=== PATIENT | female | born 2000 | race Caucasian/White ===

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

== ENCOUNTER 2021-04-19 10:40 | Emergency (ER) | payer MEDICAID ==
[~2021-04-19] VITALS: Ht 162.6 cm; Wt 51.8 kg
[2021-04-19 11:32] VITALS: BP 113/70
[2021-04-19] MEDS ORDERED: LIDO20SO16 PO (12:10)
== END 2021-04-19 12:17 | disposition home or self-care (01) ==
LOC: ER 10:41
DX: J02.9 Acute pharyngitis, unspecified (principal); Z88.5 Allergy status to narcotic agent; Z79.899 Other long term (current) drug therapy
CPT/HCPCS: 99283

== ENCOUNTER 2021-04-24 05:38 | Emergency (ER) | payer MEDICAID ==
[~2021-04-24] VITALS: Ht 162.6 cm; Wt 51.8 kg
[~2021-04-24 05:38] MED LIST changes: +LIDO20SO16 PO
[2021-04-24] MEDS ORDERED: dexamethasone 4mg tablet PO ONE (06:00)
[2021-04-24 06:12] VITALS: BP 110/65
== END 2021-04-24 06:33 | disposition home or self-care (01) ==
LOC: ER 05:40
DX: J02.9 Acute pharyngitis, unspecified (principal); R09.89 Other specified symptoms and signs involving the circulatory and respiratory systems; Z88.5 Allergy status to narcotic agent; Z88.8 Allergy status to other drugs, medicaments and biological substances; Z79.899 Other long term (current) drug therapy
CPT/HCPCS: 99283

== ENCOUNTER 2022-04-28 18:15 | Emergency (ER) | payer MEDICAID ==
[~2022-04-28] VITALS: Ht 165.1 cm; Wt 59.1 kg
[2022-04-28 18:20] VITALS: BP 124/77
[2022-04-28] MEDS ORDERED: ondansetron 4mg rapidly disintigrating tab PO ONE (20:00)
[2022-04-28 20:15] LABS: CLARITY,URINE CLEAR (Clear); COLOR,URINE YELLOW (Yellow); GLUCOSE, URINE NEGATIVE (Neg); KETONES,URINE 15 mg/dl (Neg); LEUKOCYTE ESTERASE ,URINE NEGATIVE (Neg); NITRITES, URINE NEGATIVE (Neg); OCCULT BLOOD,URINE NEGATIVE (Neg); PROTEIN,URINE NEGATIVE (Neg); UROBILINOGEN,URINE 0.2 E.U/dL (0.2-1.0)
[2022-04-28 20:16] LABS: URINE HCG NEGATIVE (NEG)
[2022-04-28 20:21] LABS: UA COLLECTION TYPE CLN CATCH MIDSTREAM
[2022-04-28] MEDS ORDERED: ONDA4TAB12 PO (20:36)
== END 2022-04-28 21:18 | disposition home or self-care (01) ==
LOC: ER 18:16
DX: R11.2 Nausea with vomiting, unspecified (principal); N89.8 Other specified noninflammatory disorders of vagina; Z88.5 Allergy status to narcotic agent; Z88.8 Allergy status to other drugs, medicaments and biological substances; Z79.899 Other long term (current) drug therapy
CPT/HCPCS: 81003; 81025; 99283

== ENCOUNTER 2022-06-29 05:33 | Emergency (ER) | payer MEDICAID ==
[~2022-06-29] VITALS: Ht 165.1 cm; Wt 59.8 kg
[~2022-06-29 05:33] MED LIST changes: +ONDA4TAB12 PO
[2022-06-29 05:46] VITALS: BP 124/82
[2022-06-29] MEDS ORDERED: ibuprofen tablet 400 MG TABLET PO ONE (06:35)
[2022-06-29] MEDS ORDERED: ibuprofen 200mg tablet PO ONE (06:40)
== END 2022-06-29 08:03 | disposition home or self-care (01) ==
LOC: ER 05:33
DX: S40.012A Contusion of left shoulder, initial encounter (principal); S56.412A Strain of extensor muscle, fascia and tendon of left index finger at forearm level, initial encounter; S56.114A Strain of flexor muscle, fascia and tendon of left middle finger at forearm level, initial encounter; Z88.8 Allergy status to other drugs, medicaments and biological substances; Z88.5 Allergy status to narcotic agent; W19.XXXA Unspecified fall, initial encounter; Y93.89 Activity, other specified; Y92.89 Other specified places as the place of occurrence of the external cause; Y99.8 Other external cause status
CPT/HCPCS: 73030; 73130; 99284

== ENCOUNTER 2022-07-01 16:22 | Emergency (ER) | payer MEDICAID ==
[~2022-07-01] VITALS: Ht 165.1 cm; Wt 60.4 kg
[2022-07-01 16:24] VITALS: BP 123/77
[2022-07-01] MEDS ORDERED: ondansetron 4mg rapidly disintigrating tab PO ONE (17:05)
[2022-07-01] MEDS ORDERED: LORazepam 1 MG tablet PO ONE (17:05)
== END 2022-07-01 17:39 | disposition home or self-care (01) ==
LOC: ER 16:22
DX: R00.2 Palpitations (principal); R11.0 Nausea; Z88.8 Allergy status to other drugs, medicaments and biological substances; Z88.5 Allergy status to narcotic agent; Z79.899 Other long term (current) drug therapy
CPT/HCPCS: 99283

== ENCOUNTER 2023-04-24 19:48 | Emergency (ER) | payer MEDICAID ==
[~2023-04-24] VITALS: Ht 162.6 cm; Wt 59.0 kg
[2023-04-24 19:58] VITALS: BP 113/73; PULSE 70; RESP 16; TEMP 98.2; O2SAT 99
[2023-04-24] MEDS: ibuprofen tablet 400 MG TABLET PO ONE (21:04)
[2023-04-24] MEDS ORDERED: IBUP-1984 PO (21:37)
== END 2023-04-24 22:05 | disposition home or self-care (01) ==
LOC: ER 19:48
DX: S66.912A Strain of unspecified muscle, fascia and tendon at wrist and hand level, left hand, initial encounter (principal); Z88.5 Allergy status to narcotic agent; Z88.8 Allergy status to other drugs, medicaments and biological substances; Z79.1 Long term (current) use of non-steroidal anti-inflammatories (NSAID); Z79.899 Other long term (current) drug therapy; X58.XXXA Exposure to other specified factors, initial encounter; Y93.89 Activity, other specified; Y92.89 Other specified places as the place of occurrence of the external cause; Y99.8 Other external cause status
CPT/HCPCS: 29125; 73110; 99283